=== PATIENT | male | born 1975 | race Caucasian/White ===

== ENCOUNTER 2024-04-04 08:11 | Emergency (ER) | payer OTHER ==
[2024-04-04] MEDS: Lidocaine 1% 10 ML MDV INJECT ONE (09:21)
== END 2024-04-04 09:40 | disposition home or self-care (01) ==
LOC: JD.ED 08:11
DX: S61.412A Laceration without foreign body of left hand, initial encounter (principal); S81.011A Laceration without foreign body, right knee, initial encounter; Z79.899 Other long term (current) drug therapy; W01.198A Fall on same level from slipping, tripping and stumbling with subsequent striking against other object, initial encounter
CPT/HCPCS: 12002; 73120-26-RT; 73120-RT; 99283; J3490

== ENCOUNTER 2024-09-18 20:11 | Emergency (ER) | payer OTHER ==
[2024-09-18] MEDS ORDERED: Naloxone 0.4 MG/ML SDV IVPUSH PRN (20:33)
[2024-09-18] MEDS: Morphine 4 MG/ML Syringe IM ONE (20:37)
[2024-09-18] MEDS: Ondansetron 4 MG Tab.DIS PO ONE (20:38)
[2024-09-18] MEDS: Diphtheria,Pertussis(Acell),Tetanus Vaccine 0.5 ML Syringe IM ONE (21:10)
[2024-09-18] MEDS: Bacitracin Oint 15 GM Tube TOP ONE (21:32)
== END 2024-09-18 21:58 | disposition home or self-care (01) ==
LOC: JD.ED 20:11
DX: T21.22XA Burn of second degree of abdominal wall, initial encounter (principal); T21.21XA Burn of second degree of chest wall, initial encounter; T22.251A Burn of second degree of right shoulder, initial encounter; Z23 Encounter for immunization; T22.231A Burn of second degree of right upper arm, initial encounter; X13.1XXA Other contact with steam and other hot vapors, initial encounter; Y93.89 Activity, other specified
CPT/HCPCS: 16020; 90471; 90715; 99283; A9270; J2270